=== PATIENT | female | born 1995 | race Hispanic/Latino ===

== ENCOUNTER 2018-04-29 22:35 | Emergency (ER) | payer OTHER ==
[~2018-04-29] VITALS: Ht 162.6 cm; Wt 94.3 kg
--- OUTSIDE RECORDS SUMMARY | 2018-04-29 22:37 | XMS REPORT | Clinical Summary ---
Author Author Lalo [facility] Organization [facility] Address Unknown Phone Unavailable Care Team Providers Care Edge Bonder Name Role Phone Asked, No Pcp PCP Unavailable Allergies Comments Active Allergy Reactions Severity Noted Date Sulfamethoxazole-Trimetho 02/16/2018 prim Penicillins Hives 02/16/2018 Medications No known medications Active Problems Not on file Encounters Care Team Description Date Type Specialty Radha Vega MD GA: 13w1d 04/08/2018 Routine Obstetrics and Gynecology Lucy Batres MA 03/29/2018 Telephone Obstetrics and Gynecology Radha Vega MD 03/22/2018 Telephone Obstetrics and Gynecology Radha Vega MD GA: 9w6d 03/16/2018 Routine Obstetrics and Gynecology Radha Vega MD test positive 02/16/2018 Ancillary Obstetrics and Gynecology Procedure Radha Vega MD test positive (Primary Dx) 02/16/2018 Office Visit Obstetrics and Gynecology Radha Vega MD 02/08/2018 Telephone Obstetrics and Gynecology after 04/28/2017 Immunizations Name Dates Previously Given Next Due INFLUENZA QUAD PF 04/08/2018 Family History Medical History Relation Name Comments Hypertension Maternal Grandfather Diabetes Maternal Grandmother Diabetes Mother Hypertension Mother Lupus Mother Relation Name Status Comments Maternal Grandfather Maternal Grandmother Mother Social History Date Tobacco Use Types Packs/Day Years Used Never Smoker Smokeless Tobacco: Never Used Alcohol Use Drinks/Week oz/Week Comments No Currently Estimated Date of Delivery Comments Yes 10/13/2018 Based on Ultrasound Sex Assigned at Date Recorded Not on file Industry Job Start Date Occupation Not on file Not on file Not on file Travel End Travel History Travel Start No recent travel history available. Last Filed Vital Signs Time Taken Vital Sign Reading 04/08/2018 2:09 PM [employer] Blood Pressure 121/78 02/16/2018 1:54 PM CDT Pulse 101 - Temperature - - Respiratory Rate - - Oxygen Saturation - - Inhaled Oxygen - Concentration 04/08/2018 2:09 PM [employer] Weight 93.4 kg (206 lb) 02/16/2018 1:54 PM CDT Height 162.6 cm (5' 4") 04/08/2018 2:09 PM [employer] Body Mass Index 35.36 Plan of Treatment Care Team Description Date Type Specialty Radha Vega MD [address] [facility] [address] [place] [id number] 05/06/2018 Routine Obstetrics and Gynecology Health Maintenance Due Date Last Done Comments CHLAMYDIA SCREENING 2011 CERVICAL CANCER SCREENING 2016 INFLUENZA VACCINE Completed 04/08/2018, 04/08/2018 HEPATITIS B VACCINES Aged Out No longer eligible based on patient's age to complete this topic IPV VACCINES Aged Out No longer eligible based on patient's age to complete this topic MENINGOCOCCAL VACCINE Aged Out No longer eligible based on patient's age to complete this topic Procedures Comments Procedure Name Priority Date/Time Associated Diagnosis NIPT Routine 03/25/2018 Encounter for supervision 2:26 PM CDT of normal first in first trimester Testing of female for genetic disease carrier status MICROSCOPIC EXAMINATION Routine 02/16/2018 2:57 PM CDT URINALYSIS, COMPLETE, Routine 02/16/2018 test positive WITH REFLEX TO CULTURE 2:57 PM CDT OBSTETRIC PANEL Routine 02/16/2018 test positive 2:57 PM CDT URINE CULTURE, Routine 02/16/2018 COMPREHENSIVE (KIRSTIN 2:57 PM CDT HIST) US TRANSVAGINAL Routine 02/16/2018 test positive 2:37 PM CDT GYNECOLOGIC PAP TEST Routine 02/16/2018 test positive (IMAGE-GUIDED), 2:33 PM CDT LIQUID-BASED PREPARATION AND CHL after 04/28/2017 Results * NIPT (03/25/2018 2:26 PM CDT) Specimen Blood Narrative Performed At Performing Organization Address City/State/Zipcode Phone Number EXTERNAL LAB NON-INTERFACED * Obstetric panel (02/16/2018 2:57 PM CDT) Hepatitis B surface Ag Negative Negative [facility] RPR Non Reactive Non Reactive [facility] Rubella IgG antibody 10.10 Immune >0.99 index [facility] Comment: Non-immune <0.90 Equivocal0.90 - 0.99 Immune >0.99 ABO grouping B [facility] Rh type Positive [facility] Comment: Please note: Prior records for this patient's ABO / Rh type are not available for additional verification. Antibody screen Negative Negative [facility] HIV AG/AB 4th gen Non Reactive Non Reactive [facility] WBC 11.3 (H) 3.4 - 10.8 x10E3/uL [facility] RBC 4.65 3.77 - 5.28 x10E6/uL [facility] HGB 13.1 11.1 - 15.9 g/dL [facility] HCT 39.5 34.0 - 46.6 % [facility] MCV 85 79 - 97 fL [facility] MCH 28.2 26.6 - 33.0 pg [facility] MCHC 33.2 31.5 - 35.7 g/dL [facility] RDW 14.2 12.3 - 15.4 % [facility] Platelet count 477 (H) 150 - 379 x10E3/uL [facility] Neutrophils 63 Not Estab. % [facility] Lymphocytes 26 Not Estab. % [facility] Monocytes 9 Not Estab. % [facility] Eosinophils 2 Not Estab. % [facility] Basophils 0 Not Estab. % [facility] Neutrophils, absolute 7.1 (H) 1.4 - 7.0 x10E3/uL [facility] Lymphocytes, absolute 2.9 0.7 - 3.1 x10E3/uL [facility] Monocytes, absolute 1.0 (H) 0.1 - 0.9 x10E3/uL [facility] Eosinophils, absolute 0.3 0.0 - 0.4 x10E3/uL [facility] Basophils, absolute 0.0 0.0 - 0.2 x10E3/uL [facility] Immature granulocytes 0 Not Estab. % [facility] Immature grans (abs) 0.0 0.0 - 0.1 x10E3/uL [facility] Specimen Blood Narrative Performed At Performed at:01 - [facility] [address] [place], [place] [id number] Women Specialist: Kodi Horton MD, Phone:[phone] Performing Organization Address [facility] Phone Number [facility] * Urine Culture, Comprehensive (02/16/2018 2:57 PM CDT) Urine culture Mixed urogenital lisseth [facility] 25,000-50,000 colony forming units per mL Narrative Performed At [facility]formed at: [facility] [address] [place], [place] [id number] Women Specialist: Kodi Horton MD, Phone:[phone] Performing Organization Address [facility] Phone Number [facility] * URINALYSIS, COMPLETE, WITH REFLEX TO CULTURE (02/16/2018 2:57 PM CDT) Specific gravity, urine >=1.030 (A) 1.005 - 1.030 [facility] pH, urine 5.5 5.0 - 7.5 [facility] Color, UA Yellow Yellow [facility] Appearance Cloudy (A) Clear [facility] WBC esterase, urine Trace (A) Negative [facility] Protein, UA Negative Negative/Trace [facility] Glucose, urine Negative Negative [facility] Ketones, UA Negative Negative [facility] Occult blood, urine Trace (A) Negative [facility] Bilirubin, UA Negative Negative [facility] Urobilinogen, UA 0.2 0.2 - 1.0 mg/dL [facility] Nitrite, UA Negative Negative [facility] Microscopic examination See below:Comment: Microscopic [facility] was indicated and was performed. Urinalysis reflex CommentComment: This specimen [facility] has reflexed to a Urine Culture. Narrative Performed At Performed at: [facility] [address] [place], [place] [id number] Women Specialist: Kodi Horton MD, Phone:[phone] Performing Organization Address [facility] Phone Number [facility] * Microscopic Examination (02/16/2018 2:57 PM CDT) WBC, UA 0-5 0 - 5 /hpf [facility] RBC, UA 0-2 0 - 2 /hpf [facility] Epithelial cells (non 0-10 0 - 10 /hpf [facility] renal) Crystals, urine Present (A) N/A [facility] Crystal type Calcium Oxalate N/A [facility] Mucus, UA Present Not Estab. [facility] Bacteria, UA Few None seen/Few [facility] Narrative Performed At Performed at: - [facility] [address] [place], [id number] Women Specialist: Kodi Horton MD, Phone:[phone] Performing Organization Address City/[facility]/Zipcode Phone Number [facility] * US Transvaginal (02/16/2018 2:37 PM CDT) Narrative Performed At [facility] LMP:12/28/2018 LMP -- GA:7w1d NICHOLE:10/04/2018 AUA--GA:5w6d NICHOLE:10/13/2018 CRL:32 mmFHR:124bpm Yolk sac seen:Yes Gestational Sac:good Corpus Luteum:Right at 2.0cm harjinder Performing Organization Address [facility] Phone Number [facility] [address] [place] [address] * Gynecologic Pap Test (Image-guided), Liquid-based Preparation and Chlamydia/Gonococcus, LAURA With Reflex to Human Papillomavirus (HPV) (Aptima) When ASC-U (02/16/2018 2:33 PM CDT) Diagnosis CommentComment: NEGATIVE FOR [facility] INTRAEPITHELIAL LESION AND MALIGNANCY. Specimen adequacy Comment [facility] Comment: Satisfactory for evaluation.Endocervical and/or squamous metaplastic cells (endocervical component) are present. Clinician provided ICD10 CommentComment: Z32.01 [facility] Performed by: Comment [facility] Comment: Spencer Amado, Toe Stapler (ASC) Reviewed at: [facility] [place] [place] [address] [facility] [place] [facility] [id number] Comment . [facility] Note: Comment [facility] Comment: The Pap smear is a screening test designed to aid in the detection of premalignant and malignant conditions of the uterine cervix.It is not a diagnostic procedure and should not be used as the sole means of detecting cervical cancer.Both false-positive and false-negative reports do occur. Test methodology Comment [facility] Comment: This liquid based ThinPrep(R) pap test was screened with the use of an image guided system. Reflex Comment [facility] Comment: The HPV DNA reflex criteria were not met with this specimen result therefore, no HPV testing was performed. Chlamydia, nucleic acid Negative Negative [facility] 02 amp Gonococcus by nucleic Negative Negative [facility] 02 acid amp Specimen Swab Narrative Performed At Performed at:01 - [facility] [place] [facility] [address] [place], [id number] Women Specialist: Cindy Arguelles MD, Phone:[phone] Performed at:02 - [facility] [place] [address] [place], [id number] Women Specialist: Cindy Arguelles MD, Phone:[phone] Specimen Comment: No. of containers..01 ThinPrep Vial Performing Organization Address City/State/Zipcode Phone Number [facility] 02 after 04/28/2017 Insurance Payer Benefit Subscriber ID Type Phone Address Plan / Group CIGNA CIGNA OPEN xxxxxxxxx HMO ACCESS/NET WORK Advance Directives Patient has advance care planning documents on file. For more information, kacey messina contact: Lalo Dewey [address] [place] [address]
[2018-04-29] MEDS ORDERED: ALBUTEROL SULF 0.083% NEB SOLN 3 ML NEB NEB STA (23:34)
[2018-04-30] MEDS ORDERED: ALBUTEROL0.63 MG/3 PO (00:01)
[2018-04-30] MEDS ORDERED: TAMIFLU75 MG PO (00:02)
== END 2018-04-30 00:20 | disposition home or self-care (01) ==
LOC: FSED 22:35
DX: R05 Cough (principal); J11.1 Influenza due to unidentified influenza virus with other respiratory manifestations; J31.0 Chronic rhinitis; Z33.1 Pregnant state, incidental
CPT/HCPCS: 80048; 85025; 87400; 99283

== ENCOUNTER 2019-01-17 08:52 | Emergency (ER) | payer SELFPAY ==
[~2019-01-17] VITALS: Ht 162.6 cm; Wt 98.0 kg
[~2019-01-17 08:52] MED LIST: ALBUTEROL0.63 MG/3 PO; TAMIFLU75 MG PO
--- OUTSIDE RECORDS SUMMARY | 2019-01-17 08:54 | XMS REPORT | Clinical Summary ---
Author Author [facility] Address Unknown Phone Unavailable Care Team Providers Care Automobile Lights Assembler Name Role Phone Asked, No Pcp PCP Unavailable Allergies Comments Active Allergy Reactions Severity Noted Date Sulfamethoxazole-Trimetho 02/16/2018 prim Penicillins Hives 02/16/2018 Sulfamethoxazole Other (See 04/30/2018 Comments) Trimethoprim Other (See 04/30/2018 Comments) Medications End Date Status Medication Sig Dispensed Refills Start Date Active albuterol (PROAIR Inhale 2 0 HFA,PROVENTIL puffs every 6 HFA,VENTOLIN HFA) 90 (six) hours mcg/actuation inhaler as needed for wheezing. Active norgestimate-ethinyl Take 1 tablet 84 tablet 3 estradiol (ORTHO by mouth 9 TRI-CYCLEN LO, 28,) daily. 0.18/0.215/0.25 mg-25 mcg per tablet Active Problems Problem Noted Date delivery 08/24/2018 08/11/2018 Asthma affecting , antepartum 05/06/2018 Encounters Care Team Description Date Type Specialty Radha Vega MD care and examination (Primary Dx) 09/23/2018 Obstetrics and Gynecology Visit 08/27/2018 Encounter Radha Vega MD delivery (Primary Dx) 08/24/2018 Obstetrics and Gynecology Visit Alireza Gonzalez MD Lopez, Eduardo, LARISSA 08/11/2018 Anesthesia Obstetrics and Gynecology Event Kimberly Bolaños MD DELIVERY, 08/11/2018 Surgery Obstetrics and Gynecology Radha Vega MD 08/11/2018 Hospital Obstetrics and Gynecology - Encounter 08/14/2018 Radha Vega MD GA: 30w6d 08/10/2018 Routine Obstetrics and Gynecology Radha Vega MD GA: 28w5d 07/26/2018 Routine Obstetrics and Gynecology Radha Vega MD GA: 24w5d 06/28/2018 Routine Obstetrics and Gynecology Radha Vega MD 06/11/2018 Orders Only Obstetrics and Gynecology Radha Vega MD GA: 21w1d 06/03/2018 Routine Obstetrics and Gynecology Radha Vega MD 05/07/2018 Telephone Obstetrics and Gynecology Radha Vega MD GA: 17w1d 05/06/2018 Routine Obstetrics and Gynecology Kaitlin Bhardwaj RN 04/30/2018 Telephone Obstetrics and Gynecology Radha Vega MD GA: 13w1d 04/08/2018 Routine Obstetrics and Gynecology Lucy Batres MA 03/29/2018 Telephone Obstetrics and Gynecology Radha Vega MD 03/22/2018 Telephone Obstetrics and Gynecology Radha Vega MD GA: 9w6d 03/16/2018 Routine Obstetrics and Gynecology Radha Vega MD test positive 02/16/2018 Ancillary Obstetrics and Gynecology Procedure Radha Vega MD test positive (Primary Dx) 02/16/2018 Office Visit Obstetrics and Gynecology Radha Veag MD 02/08/2018 Telephone Obstetrics and Gynecology after 01/16/2018 Immunizations Name Administration Dates Next Due INFLUENZA QUAD PF 04/08/2018 Tdap 07/26/2018 Family History Medical History Relation Name Comments Hypertension Maternal Grandfather Diabetes Maternal Grandmother Diabetes Mother Hypertension Mother Lupus Mother Relation Name Status Comments Maternal Grandfather Maternal Grandmother Mother Social History Date Tobacco Use Types Packs/Day Years Used Never Smoker Smokeless Tobacco: Never Used Drinks/Week oz/Week Comments Alcohol Use No Sex Assigned at Date Recorded Not on file Industry Job Start Date Occupation Not on file Not on file Not on file Travel End Travel History Travel Start No recent travel history available. Last Filed Vital Signs Reading Time Taken Comments Vital Sign 124/81 09/23/2018 10:39 AM CDT Blood Pressure 80 09/23/2018 10:39 AM CDT Pulse 36.7 C (98.1 F) 08/14/2018 7:59 AM CDT Temperature 16 08/14/2018 7:59 AM CDT Respiratory Rate 99% 08/11/2018 9:30 AM CDT Oxygen Saturation - - Inhaled Oxygen Concentration 97.5 kg (215 lb) 09/23/2018 10:39 AM CDT Weight 162.6 cm (5' 4") 09/23/2018 10:39 AM CDT Height 36.9 09/23/2018 10:39 AM CDT Body Mass Index Plan of Treatment Care Team Description Date Type Specialty Radha Vega MD [address] [facility] [address] [place] [id number] 03/29/2019 Office Visit Obstetrics and Gynecology Health Maintenance Due Date Last Done Comments CERVICAL CANCER SCREENING 2016 INFLUENZA VACCINE 12/23/2018 04/08/2018, 04/08/2018 CHLAMYDIA SCREENING 02/16/2019 02/16/2018 Procedures Comments Procedure Name Priority Date/Time Associated Diagnosis HC COMPLETE BLD COUNT Routine 08/12/2018 W/AUTO DIFF 5:30 AM CDT SURGICAL PATHOLOGY Routine 08/11/2018 REQUEST 8:48 AM CDT SC AN SPINAL BLOCK Routine 08/11/2018 POST-OP PAIN 5:44 AM CDT Procedure Note - Alireza Gonzalez MD - 08/11/2018 5:44 AM CDT Spinal Block Date/Time: 08/11/2018 5:42 AM Performed by: Alireza Gonzalez MD Authorized by: Alireaz Gonzalez MD Patient Location: OR Start Time: 08/11/2018 5:37 AM End Time: 08/11/2018 5:42 AM Reason for Block: post-op pain management , primary anesthetic Staff: Anesthesio logist: Alireza Gonzalez MD Performed by: Anesthesio logist Preprocedu re: patient identified , IV checked, site and side verified, risks and benefits discussed, procedure verified, surgical consent complete, patient position confirmed, monitors and equipment checked and pre-op evaluation complete Spinal Block: Patient Position: Sitting Prep: Betadine Monitoring : Blood pressure monitoring , continuous pulse oximetry and CO2 Approach: Midline Interspace : L3-4 Injection Technique: Single injection Needle: Needle Type: Pencil-tip Needle Gauge: 22 G Assessment : Block assessment : Patient tolerated procedure well Notes: Difficult spinal due to poor patient positionin g and body habitus. Attempted L4-5 x2 with 25 g. needle=> L3-4 with 22g needle. Medication s Administer ed Bupivacain e 0.75% PF (mL), 1.4 mL fentaNYL (SUBLIMAZE ), 20 mcg morPHINE 1 mg/mL PF, 0.2 mg DELIVERY, 08/11/2018 Malposition 5:25 AM CDT Case Notes TYPE AND SCREEN, Routine 08/11/2018 OBSTETRICAL PATIENT 5:15 AM CDT HC COMPLETE BLD COUNT Routine 08/11/2018 W/AUTO DIFF 5:15 AM CDT RUBELLA AB IGG Routine 08/11/2018 5:06 AM CDT SYPHILIS TREPONEMAL IGG Routine 08/11/2018 5:06 AM CDT HIV AG/AB COMBINATION Routine 08/11/2018 5:06 AM CDT HEPATITIS B SURFACE Routine 08/11/2018 ANTIGEN 5:06 AM CDT POC AMNISURE Routine 08/11/2018 4:56 AM CDT CBC WITH PLATELET AND Routine 06/28/2018 Encounter for supervision DIFFERENTIAL 1:24 PM SENIOR PAYROLL SPECIALIST of normal first in second trimester GESTATIONAL DIABETES Routine 06/28/2018 Encounter for supervision SCREEN 1:24 PM SENIOR PAYROLL SPECIALIST of normal first in second trimester US OB DETAIL Routine 06/11/2018 ANATOMY SINGLE OR FIRST GESTATION MATERNAL SERUM SCREEN AFP Routine 05/06/2018 Asthma affecting 2:22 PM SENIOR PAYROLL SPECIALIST , antepartum NIPT Routine 03/25/2018 Encounter for supervision 2:26 [...] PM CDT LIQUID-BASED PREPARATION AND CHL after 01/16/2018 Results * CBC with platelet and differential (08/12/2018 5:30 AM CDT) Only the most recent of 3 results within the time period is included. WBC 11.02 (H) 4.50 - 11.00 k/uL [facility] RBC 3.94 (L) 4.20 - 5.50 m/uL [facility] HGB 10.5 (L) 12.0 - 16.0 g/dL [facility] HCT 32.0 (L) 37.0 - 47.0 % [facility] MCV 81.2 (L) 82.0 - 100.0 fL [facility] MCH 26.6 (L) 27.0 - 34.0 pg [facility] MCHC 32.8 31.0 - 37.0 g/dL [facility] RDW - SD 39.9 37.0 - 55.0 fL [facility] MPV 9.1 8.8 - 13.2 fL [facility] Platelet count 379 150 - 400 k/uL [facility] Nucleated RBC 0.00 /100 WBC [facility] Neutrophils 70.5 (H) 39.0 - 69.0 % [facility] Lymphocytes 16.8 (L) 25.0 - 45.0 % [facility] Monocytes 9.1 0.0 - 10.0 % [facility] Eosinophils 2.9 0.0 - 5.0 % [facility] Basophils 0.2 0.0 - 1.0 % [facility] Immature 0.5Comment: "Immature 0.0 - 1.0 % [place] granulocytes granulocytes" (promyelocytes, [place] myelocytes, metamyelocytes) HOSPITAL Specimen Blood Performing Organization Address City/State/Zipcode Phone Number [facility] DEPARTMENT OF [address] [place] [address] PATHOLOGY AND GENOMIC MEDICINE [address] * Surgical pathology request (08/11/2018 8:48 AM CDT) Pathologist [facility] DEPARTMENT OF PATHOLOGY AND GENOMIC MEDICINE Surgical See link below for PDF Lab [facility] DEPARTMENT pathology Report OF PATHOLOGY report AND GENOMIC MEDICINE Result status This is Final Report for [facility] DEPARTMENT [id number] OF PATHOLOGY AND GENOMIC MEDICINE Specimen Performing Organization Address City/State/Zipcode Phone Number [facility] DEPARTMENT OF [address] [place] [address] PATHOLOGY AND GENOMIC MEDICINE * Type and screen, obstetrical patient (08/11/2018 5:15 AM CDT) Pathologist [facility] ABO grouping B [facility] Rh type POS [facility] Antibody screen NEG [place] (gel) [facility] [place] Specimen Blood Performing Organization Address City/[facility]/Zipcode Phone Number [facility] DEPARTMENT OF [address] [place] [address] PATHOLOGY AND GENOMIC MEDICINE [address] * Syphilis treponemal IgG (08/11/2018 5:06 AM CDT) Pathologist [facility] Syphilis Non-reactiveComment: Non-reactive [place] treponemal IgG Non-reactive: No serological [place] evidence of Syphilis infection HOSPITAL Specimen Serum Performing Organization Address City/[facility]/Zipcode Phone Number [facility] DEPARTMENT OF [address] [place] [address] PATHOLOGY AND GENOMIC MEDICINE [address] * HIV Ag/Ab combination (08/11/2018 5:06 AM CDT) Pathologist [facility] HIV Ag/Ab Non-reactive Non-reactive [facility] Specimen Blood Performing Organization Address City/State/Zipcode Phone Number [facility] [place] [address] PATHOLOGY AND GENOMIC MEDICINE [address] * Rubella Ab IgG (08/11/2018 5:06 AM CDT) Pathologist [facility] Rubella IgG Positive Negative [place] antibody Comment: [place] IgG antibody levels are at a HOSPITAL level that are considered to indicate positive immunity Specimen Serum Performing Organization Address City/[facility]/Zipcode Phone Number [facility] DEPARTMENT OF [address] [place] [address] PATHOLOGY AND GENOMIC MEDICINE [address] * Hepatitis B surface antigen (08/11/2018 5:06 AM CDT) Pathologist [facility] Hepatitis B Non-reactive Non-reactive [facility] Ag [facility] [place] Specimen Blood Performing Organization Address [facility] Phone Number [facility] DEPARTMENT OF [address] [place] [address] PATHOLOGY AND GENOMIC MEDICINE [address] * POC [facility] (08/11/2018 4:56 AM CDT) [facility] Amnisure, POC Positive Internal QC Present Specimen Vaginal fluid * Gestational Diabetes Screen (06/28/2018 1:24 PM SENIOR PAYROLL SPECIALIST) [facility] Gestational 102 65 - 139 mg/dL [facility] diabetes screen Comment: According to ADA, a glucose threshold of >139 mg/dL after 50-gram load identifies approximately 80% of women with gestational diabetes mellitus, while the sensitivity is further increased to approximately 90% by a threshold of >129 mg/dL. Specimen Blood Narrative Performed At Performed at: [id number] Professional Services Specialist: Kodi Horton MD, Phone:[phone] Performing Organization Address City/[facility] Facility[facility] Phone Number [facility] * Ultrasound OB detail anatomy single or first gestation (06/11/2018) Narrative Performed At * Maternal serum screen AFP [facility] (05/06/2018 2:22 PM SENIOR PAYROLL SPECIALIST) [facility] Results: Report [facility] Test Results *Screen Negative* [facility] Gest. Age on 17.1 weeks [facility] collection date Gest. age based NICHOLE [facility] on Comment: 10/13/2018 Recalculations are not recommended when gestational dating by LMP and ultrasound are within 10 days. Maternal [age] [facility] NICHOLE Maternal race [facility] Weight 211 lbs [facility] Insulin Dep No [facility] Diabetes Multiple No [facility] gestation Alpha 30.7 ng/mL [facility] fetoprotein Mom for AFP 1.02 [facility] OSBR Risk 10,000 [facility] Interpretation Comment [facility] Comment: Interpretation: Screen Negative This result is screen negative for OSB. The AFP MoM calculated is based on the gestational age provided. MS-AFP can identify up to 80% of open neural tube defects. Closed neural tube defects and some open defects may not be detected by this test. This test does not screen for Down Syndrome or Trisomy 18. If screening for Down Syndrome or Trisomy 18 is desired, contact Genetic Customer Services to discuss available options.The [place] [employer] recommends amniocentesis be offered to women age 35 and older. Comment Comment [facility] Comment: Keeley Dyson, Ph.D., [facility] Principal Genetics Pediatric Licensed Practical Nurse References: Available Upon Request. Multiples Of Median Cutoffs For AFP Elevations Tsai 2.5 Black2.8 IDD 2.0 Twins4.5 Abbreviation Definitions IDD - Insulin Dep Diabetes OSBR - Open Spina Bifida Risk For further inquiries contact [facility] at [phone]. Specimen Blood Narrative Performed At Performed at:01 - [facility] RT [facility] [address] [facility], [facility], [id number] Professional Services Specialist: Chuy Merritt MD, Phone:[phone] Performing Organization Address City/State/Zipcode Phone Number [facility] * NIPT (03/25/2018 2:26 PM CDT) Specimen Blood Narrative Performed At Performing Organization Address [facility] Phone Number EXTERNAL LAB NON-INTERFACED * Obstetric panel (02/16/2018 2:57 PM CDT) Hepatitis B Negative Negative [facility] surface Ag RPR Non Reactive Non Reactive [facility] Rubella IgG 10.10 Immune >0.99 index [facility] antibody Comment: Non-immune <0.90 Equivocal0.90 - 0.99 Immune >0.99 ABO grouping B [facility] Rh type Positive [facility] Comment: Please note: Prior records for this patient's ABO / Rh type are not available for additional verification. Antibody screen Negative Negative [facility] HIV AG/AB 4th Non Reactive Non Reactive [facility] gen WBC 11.3 (H) 3.4 - 10.8 x10E3/uL [...] Basophils 0 Not Estab. % [facility] Neutrophils, 7.1 (H) 1.4 - 7.0 x10E3/uL [facility] absolute Lymphocytes, 2.9 0.7 - 3.1 x10E3/uL [facility] absolute Monocytes, 1.0 (H) 0.1 - 0.9 x10E3/uL [facility] absolute Eosinophils, 0.3 0.0 - 0.4 x10E3/uL [facility] absolute Basophils, 0.0 0.0 - 0.2 x10E3/uL [facility] absolute Immature 0 Not Estab. % [facility] granulocytes Immature grans 0.0 0.0 - 0.1 x10E3/uL [facility] (abs) Specimen Blood Narrative Performed At Performed at: [id number] Professional Services Specialist: Kodi Horton MD, Phone:[phone] Performing Organization Address [facility] Phone Number [facility] * Urine Culture, Comprehensive (02/16/2018 2:57 PM CDT) Urine culture Mixed urogenital lisseth [facility] 25,000-50,000 colony forming units per mL Specimen Narrative Performed At Performed at: - [id number] Professional Services Specialist: Kodi Horton MD, Phone:[phone] Performing Organization Address [facility] Phone Number [facility] * URINALYSIS, COMPLETE, WITH REFLEX TO CULTURE (02/16/2018 2:57 PM CDT) Specific >=1.030 (A) 1.005 - 1.030 [facility] gravity, urine pH, urine 5.5 5.0 - 7.5 [facility] Color, UA Yellow Yellow [facility] Appearance Cloudy (A) Clear [facility] WBC esterase, Trace (A) Negative [facility] urine Protein, UA Negative Negative/Trace [facility] Glucose, urine Negative Negative [facility] Ketones, UA Negative Negative [facility] Occult blood, Trace (A) Negative [facility] urine Bilirubin, UA Negative Negative [facility] Urobilinogen, 0.2 0.2 - 1.0 mg/dL [facility] UA Nitrite, UA Negative Negative [facility] Microscopic See below:Comment: Microscopic [facility] examination was indicated and was performed. Urinalysis CommentComment: This specimen [facility] reflex has reflexed to a Urine Culture. Specimen Narrative Performed At Performed at:[address] [place] [address] [employer] [place], [id number] Professional Services Specialist: Kodi Horton MD, Phone:[phone] Performing Organization Address [facility] Phone Number [facility] * Microscopic Examination (02/16/2018 2:57 PM CDT) Pathologist [facility] WBC, UA 0-5 0 - 5 /hpf [facility] RBC, UA 0-2 0 - 2 /hpf [facility] Epithelial 0-10 0 - 10 /hpf [facility] cells (non renal) Crystals, urine Present (A) N/A [facility] Crystal type Calcium Oxalate N/A [facility] Mucus, UA Present Not Estab. [facility] Bacteria, UA Few None seen/Few [facility] Specimen Narrative Performed At Performed at:[address] [place], [place] [address] [employer] [place], [id number] Professional Services Specialist: Kodi Horton MD, Phone:[phone] Performing Organization Address [facility] Phone Number [facility] * US Transvaginal (02/16/2018 2:37 PM CDT) Specimen Narrative Performed At [facility] LMP:12/28/2018 LMP -- GA:7w1d NICHOLE:10/04/2018 AUA--GA:5w6d NIC[place]LE:10/13/2018 CRL:32 mmFHR:124bpm Yolk sac seen:Yes Gestational Sac:good Corpus Luteum:Right at 2.0cm harjinder Performing Organization Address City/State/Zipcode Phone Number [facility]RE[facility] [address] [place] [address] * Gynecologic Pap Test (Image-guided), Liquid-based Preparation and Chlamydia/Gonococcus, LAURA With Reflex to Human Papillomavirus (HPV) (Aptima) When ASC-U (02/16/2018 2:33 PM CDT) Diagnosis CommentComment: NEGATIVE FOR [facility] INTRAEPITHELIAL LESION AND MALIGNANCY. Specimen Comment [facility] adequacy Comment: Satisfactory for evaluation.Endocervical and/or squamous metaplastic cells (endocervical component) are present. Clinician CommentComment: Z32.01 [facility] provided ICD10 Performed by: Comment [facility] Comment: Spencer Amado, [employer] Security Consultant (ASCP) Reviewed at: [address] Comment . [facility] Note: Comment [facility] Comment: The Pap smear is a screening test designed to aid in the detection of premalignant and malignant conditions of the uterine cervix.It is not a diagnostic procedure and should not be used as the sole means of detecting cervical cancer.Both false-positive and false-negative reports do occur. Test Comment [facility] methodology Comment: This liquid based ThinPrep(R) pap test was screened with the use of an image guided system. Reflex Comment [facility] Comment: The HPV DNA reflex criteria were not met with this specimen result therefore, no HPV testing was performed. Chlamydia, Negative Negative [facility] 02 nucleic acid amp Gonococcus by Negative Negative [facility] 02 nucleic acid amp Specimen Swab Narrative Performed At Performed at: - [facility] [address] [place], [id number] Professional Services Specialist: Cindy Arguelles MD, Phone:[phone] Performed at: - [place] [address] [place], [id number] Professional Services Specialist: Cindy Arguelles MD, Phone:[phone] Specimen Comment: No. of containers..01 ThinPrep Vial Performing Organization Address City/State/Zipcode Phone Number [facility] 02 after 01/16/2018 Insurance Type Payer Benefit Subscriber ID Effective Phone Address Plan / Dates Group HMO CIGNA CIGNA OPEN xxxxxxxxx 2015-P ACCESS/NET resent WORK HMO [employer] xxxxxxxxx 2018- [facility]/STAR Present [facility] Advance Directives For more information, please contact: [phone] Patient Viner Operator Explanation Type Date Recorded Advance Directives, Living Will and Medical Power of Psychologist Date Inactivated Comments Code Status Date Activated 08/14/2018 10:43 PM Full Code 08/11/2018 7:12 AM Code Status decision reached by: Patient
== END 2019-01-17 09:16 | disposition left against medical advice (07) ==
LOC: FSED 08:52
DX: T17.1XXA Foreign body in nostril, initial encounter (principal)

== ENCOUNTER 2019-04-14 12:41 | Emergency (ER) | payer OTHER ==
[~2019-04-14] VITALS: Ht 162.6 cm; Wt 98.0 kg
[2019-04-14] MEDS ORDERED: ONDANSETRON HCL 4 MG ORAL DISINTEGRATING TAB PO ONE (14:00)
[2019-04-14 14:59] LABS: CLARITY,URINE CLOUDY (CLEAR); COLOR,URINE YELLOW (YELLOW); LEUKOCYTE ESTERASE ,URINE NEGATIVE (NEGATIVE); NITRITE,URINE NEGATIVE (NEGATIVE); PROTEIN,URINE DIPSTICK TRACE (NEGATIVE)
[2019-04-14 15:00] LABS: BILIRUBIN,URINE NEGATIVE (NEGATIVE); KETONES,URINE NEGATIVE (NEGATIVE); URINE UROBILINOGEN 0.2 mg/dL (0.2 - 1)
[2019-04-14 15:04] LABS: EOSINOPHILS % 0.2 % (0.0-6.0); HEMATOCRIT 43.5 % (34.2-44.1); HEMOGLOBIN 13.9 g/dL (12.0-16.0); LYMPHOCYTES % 1.7 % (18.0-39.1); MEAN CORPUSCULAR HEMOGLOBIN 25.4 pg (28-32); MEAN CORPUSCULAR VOLUME 79.5 fL (81-99); MONOCYTES % 0.8 % (4.4-11.3); NEUTROPHILS % 12.3 % (38.7-80.0); PLATELET COUNT 482 x10e3/uL (140-360); RED BLOOD COUNT 5.47 x10e6/uL (3.6-5.1); RED CELL DISTRIBUTION WIDTH 14.9 % (11.7-14.4)
[2019-04-14 15:08] LABS: ANION GAP 15.9 mmol/L (8-16); CARBON DIOXIDE 25 mmol/L (22-29); CHLORIDE 103 mmol/L (98-107); POTASSIUM 3.9 mmol/L (3.5-5.1); SODIUM 140 mmol/L (136-145)
[2019-04-14 15:08] LABS: BACTERIA,URINE FEW /HPF; EPITHELIAL CELLS,URINE FEW /LPF
[2019-04-14 15:09] LABS: ALANINE AMINOTRANSFERASE 37 IU/L (0-55); ALBUMIN 4.3 g/dL (3.5-5.0); ALKALINE PHOSPHATASE 81 IU/L (40-150); BLOOD UREA NITROGEN 16 mg/dL (7-26); BUN/CREATININE RATIO 20 (6-25); CALCIUM 9.9 mg/dL (8.4-10.2); CREATININE, SERUM 0.79 mg/dL (0.57-1.11); EST GLOMERULAR FILTRATION RATE > 60 ML/MIN (60-); GLUCOSE 86 mg/dL (74-118)
--- NOTE | 2019-04-14 18:02 | NUR ---
BACK IN ROOM 11 FOR MD EARLY-ROSALIE
[2019-04-14 18:36] VITALS: BP 136/77
== END 2019-04-14 18:37 | disposition home or self-care (01) ==
LOC: ER 12:41
DX: N93.8 Other specified abnormal uterine and vaginal bleeding (principal); R11.2 Nausea with vomiting, unspecified; B34.9 Viral infection, unspecified
CPT/HCPCS: 36415; 80053; 81001; 84702; 85025; 99283